=== PATIENT | male | born 1975 | race African-American/Black ===

== ENCOUNTER 2019-07-01 19:25 | Inpatient (IN) | payer MEDICAID ==
[~2019-07-01] VITALS: Ht 175.3 cm; Wt 59.3 kg
[~2019-07-01 19:25] MED LIST: DIAZ5TAB PO; HYDR-762 PO; IBUP-1542 PO; INSU100I12 SQ; INSU100I33 SC; METF-849 PO; MTF1000T PO
[2019-07-01] MEDS ORDERED: SOD CHLORIDE 0.9% 1,000 ML IV STA (19:58)
[2019-07-01] MEDS ORDERED: SOD CHLORIDE 0.9% 1,000 ML IV SCH (20:59)
[2019-07-01] MEDS ORDERED: DEXTROSE 10%/0.45% NACL 1,000 ML IV SCH (20:59)
[2019-07-01] MEDS ORDERED: NS + KCL 40 MEQ 1,000 ML IV SCH (20:59)
[2019-07-01] MEDS ORDERED: D10/0.45% NACL + KCL 40 MEQ 1,000 ML IV SCH (20:59)
[2019-07-01] MEDS ORDERED: DEXTROSE 50% 50 ML SYRINGE IV PRN ×2 (21:00)
[2019-07-01] MEDS ORDERED: INSULIN REGULAR, HUMAN 100 UNIT in SOD CHLORIDE 0.9% 100 ML IV SCH ×2 (21:00)
[2019-07-01] MEDS ORDERED: LACTATED RINGER'S 590 ML IV ONE (21:00)
[2019-07-01] MEDS: NS + KCL 30 MEQ 1,000 ML IV SCH (22:34)
[2019-07-01] MEDS ORDERED: ACETAMINOPHEN 650MG/20.3ML CUP PO PRN (23:00)
[2019-07-01] MEDS ORDERED: ALBUTEROL/IPRATROPIUM (NEB) 3 ML AMP NEB PRN (23:00)
[2019-07-01] MEDS ORDERED: ONDANSETRON 4 MG INJ IV PRN (23:00)
--- NOTE | 2019-07-01 23:00 | HP ---
Date/Time of Note Date/Time of Note DATE: 07/01/19 TIME: 23:00 Assessment/Plan VTE Prophylaxis Pharmacological prophylaxis: heparin Lines/Catheters IV Catheter Type (from Nrs): Saline Lock Assessment/Plan Assessment/Plan 43-year-old male with type 2 diabetes, on metformin and Lantus being admitted for DKA PLAN -Insulin with DKA protocol. I expect DKA to resolve quickly and transition to subcu -IV fluid -Correct electrolytes -ICU admission Result Diagram: 07/01/19201907/01/192019 Results 24hrs Laboratory Tests Test 07/01/19 19:37 07/01/19 20:20 07/01/19 20:58 07/01/19 20:59 Bedside Glucose 420 *H White Blood Count 7.1 Red Blood Count 5.86 Hemoglobin 17.3 Hematocrit 50.6 Mean Corpuscular 86.3 Volume Mean Corpuscular 29.5 Hemoglobin Mean Corpuscular 34.2 Hemoglobin Concen t Red Cell 12.8 Distribution Width Platelet Count 320 Mean Platelet 9.5 Volume Immature 1.000 H Granulocytes % Neutrophils % 72.3 Lymphocytes % 17.9 Monocytes % 7.4 Eosinophils % 0.4 Basophils % 1.0 Nucleated Red 0.0 Blood Cells % Immature 0.070 H Granulocytes # Neutrophils # 5.2 Lymphocytes # 1.3 Monocytes # 0.5 Eosinophils # 0.0 Basophils # 0.1 Nucleated Red 0.0 Blood Cells # Sodium Level 135 Potassium Level 5.0 Chloride Level 92 L Carbon Dioxide 16 L Level Anion Gap 27 H Blood Urea 15 Nitrogen Creatinine 1.10 Est Glomerular > 60 Filtrat Rate mL/min Glucose Level 436 *H Calcium Level 10.4 H Blood Gas Blood venous Specimen Source Arterial Blood 07/01/2019 9:06:5 Date Drawn 1 PM Arterial Blood VENOUS LINE Gas Puncture Site Markos Test N/A Venous Blood pH 7.256 L Venous Blood pCO2 34.7 L (Temp Corrected) Venous Blood pO2 35.8 H (Temp Corrected) Venous Blood HCO3 15.1 L Venous Blood 64.3 Oxygen Saturation Venous Blood Base -10.9 L Excess Venous Blood 17.3 Total Hemoglobin Venous Blood 63.6 Oxyhemoglobin Venous Blood 0.3 Methemoglobin Carboxyhemoglobin 0.8 Blood Gas 37.0 Temperature Blood Gas Actual 18 Respiration Rate Blood Gas ROOM AIR Modality FiO2 21.0 Blood Gas Notified Whom Blood Gas 07/01/2019 9:14:0 Notified Time 3 PM Urine Color STRAW Urine Clarity CLEAR Urine pH 5.0 Urine Specific 1.029 [place] Urine Ketones 2+ H Urine Nitrite NEGATIVE Urine Bilirubin NEGATIVE Urine NEGATIVE Urobilinogen Urine Leukocyte NEGATIVE Esterase Urine Hemoglobin NEGATIVE Urine Glucose 3+ H Urine Total NEGATIVE Protein Test 07/01/19 21:41 07/01/19 22:29 07/01/19 22:59 Bedside Glucose 359 H 303 H Blood Gas Blood venous Specimen Source Arterial Blood 07/01/2019 10:25: Date Drawn 20 PM Arterial Blood VENOUS LINE Gas Puncture Site Markos Test N/A Venous Blood pH 7.244 L Venous Blood pCO2 37.8 (Temp Corrected) Venous Blood pO2 29.9 (Temp Corrected) Venous Blood HCO3 16.0 L Venous Blood 55.4 Oxygen Saturation Venous Blood Base -10.5 L Excess Venous Blood 17.1 Total Hemoglobin Venous Blood 54.8 Oxyhemoglobin Venous Blood 0.3 Methemoglobin Carboxyhemoglobin 0.7 Blood Gas 37.0 Temperature Blood Gas Actual 25 Respiration Rate Blood Gas ROOM AIR Modality FiO2 21.0 Blood Gas Notified Whom Blood Gas 07/01/2019 10:31: Notified Time 06 PM HPI/ROS Admit Date/Time Admit Date/Time Hx of Present Illness Patient is a 43-year-old male with a history of type 2 diabetes (insulin-depende nt) who presents the ER complaining of generalized weakness, nausea/vomiting. Patient was found to be in DKA and was started on a DKA protocol. PMH/Family/Social Past Medical History Medical History: other (see hpi) Medications Current Medications Potassium Chloride/Sodium Chloride 1,000 ml @ 0 mls/hr Q0M IV ; Start 07/01/19 at 20:59 Potassium Chloride/Dextrose/ Sod Cl 1,000 ml @ 0 mls/hr Q0M IV ; Start 07/01/19 at 20:59 Potassium Chloride/Sodium Chloride 1,000 ml @ 0 mls/hr Q0M IV Last administered on 07/01/19at 22:34; Admin Dose 250 MLS/HR; Start 07/01/19 at 20:59 Potassium Chloride/Dextrose/ Sod Cl 1,000 ml @ 0 mls/hr Q0M IV ; Start 07/01/19 at 20:59 Sodium Chloride 1,000 ml @ 0 mls/hr Q0M IV ; Start 07/01/19 at 20:59 Dextrose/Sodium Chloride 1,000 ml @ 0 mls/hr Q0M IV ; Start 07/01/19 at 20:59 Insulin Human Regular 100 unit/ Sodium Chloride 101 ml @ 5.99 mls/hr ER DKA PROTOCOL IV Last administered on 07/01/19at 22:37; Admin Dose 5.99 MLS/HR; Start 07/01/19 at 21:00 Miscellaneous Information (* Miscellaneous Pharmacy Order) HYPOGLYCEMIA TREATMENT HYPOGLYCEM PROTOCOL PRN XX .HYPOGLYCEMIA PROTOCOL; Start 07/01/19 at 21:00 Dextrose (D50w Syringe) 50 ml Q15M PRN IV .DECREASED GLUCOSE; Start 07/01/19 at 21:00 Dextrose (D50w Syringe) 25 ml Q15M PRN IV .DECREASED GLUCOSE; Start 07/01/19 at 21:00 Ondansetron HCl (Zofran Inj) 4 mg Q6H PRN IV NAUSEA AND/OR VOMITING; Start 07/01/19 at 23:00; Status UNV Albuterol/ Ipratropium (Duoneb) 3 ml Q2H RESP THERAPY PRN NEB SHORTNESS OF BREATH; Start 07/01/19 at 23:00; Status UNV Acetaminophen (Tylenol Liquid) 650 mg Q6H PRN PO PAIN LEVEL 1-3 OR FEVER; Start 07/01/19 at 23:00; Status UNV Pantoprazole (Protonix Iv) 40 mg DAILY@06 IV ; Start 07/02/19 at 06:00; Status UNV Coded Allergies: No Known Allergy (Unverified , 07/01/19) Past Surgical History Past Surgical Hx: other (see hpi) Family History Significant Family History: no pertinent family hx, other Social History Alcohol Use: other Smoking Status: Unknown if ever smoked Drug Use: other Exam/Review of Systems Vital Signs Vitals Vital Signs Date Temp Pulse Resp B/P (MAP) Pulse Ox O2 O2 Flow FiO2 Time Delivery Rate 07/01/19 98.5 102 25 143/99 100 Room Air 21:30 (114) Exam Constitutional: other (no acute distress) Head: normocephalic Eyes: PERRL Neck: supple Respiratory: clear to auscultation Cardiovascular: nl pulses Gastrointestinal: soft Extremities: normal pulses HEIDI PAULINO MD Jul 01, 2019 23:00
[2019-07-02] VITALS (20 sets, daily range): BP systolic 110–135; BP diastolic 70–95; PULSE 83–100; RESP 11–18; Ht 175.3 cm; Wt 59.3 kg
--- NOTE | 2019-07-02 00:19 | ERD ---
ER Documentation Chief Complaint Chief Complaint vomiting/generalize body weakness, sent by pmd for hyperglycemia HPI 43-year-old male sent in from clinic for vomiting and generalized body weakness for the past 2 days. He states that he has just generally not been feeling well. He does have a history of type 2 diabetes for which she uses insulin and metformin. He is using his medications as directed. He has had increased str ess in his home situation recently. No chest pain or shortness of breath at this time. No recent fevers or chills. ROS All systems reviewed and are negative except as per history of present illness. Medications Home Meds Reported Medications Metformin* (Glucophage*) 1,000 Mg Tablet, 1000 MG PO WITH BREAKFAST DINNE, #30 TAB 07/01/19 Insulin Glargine,Hum.rec.anlog (Basaglar Kwikpen U-100) 100 Unit/1 Ml Insuln.pen, 35 UNIT SC QHS, EA 07/01/19 Discontinued Scripts Ibuprofen* (Motrin*) 600 Mg Tab, 600 MG PO Q6, #30 TAB Prov:ARGENIS CLAUDIO MD 07/12/15 Diazepam* (Valium*) 5 Mg Tablet, 5 MG PO QHS PRN for MUSCLE SPASMS, #5 TAB Prov:ARGENIS CLAUDIO MD 07/12/15 Hydrocodone Bit-Acetaminophen* ([place]*) 10-325 Mg Tablet, 1 TAB PO Q6 PRN for PAIN, #12 TAB Prov:ARGENIS CLAUDIO MD 07/12/15 Allergies Allergies: Coded Allergies: No Known Allergy (Unverified , 07/01/19) PMhx/Soc History of Surgery: No Anesthesia Reaction: No Hx Neurological Disorder: No Hx Respiratory Disorders: No Hx Cardiac Disorders: No Hx Psychiatric Problems: No Hx Miscellaneous Medical Probl: Yes (DM) Hx Alcohol Use: No Hx Substance Use: No Hx Tobacco Use: No Smoking Status: Unknown if ever smoked FmHx Family History: No diabetes Physical Exam Vitals Vital Signs Date Temp Pulse Resp B/P (MAP) Pulse Ox O2 O2 Flow FiO2 Time Delivery Rate 07/01/19 98.5 102 25 143/99 100 Room Air 21:30 (114) 07/01/19 98.7 90 18 121/93 98 Room Air 20:24 (102) 07/01/19 98.2 103 20 134/84 98 19:34 (101) Physical Exam Const: No acute distress Head: Atraumatic Eyes: Normal Conjunctiva, PERRLA, EOMI ENT: Dry mucous membranes. Normal External Ears, Nose and Mouth. Neck: Full range of motion. No meningismus. Resp: Clear to auscultation bilaterally Cardio: Tachycardic with regular rhythm, no murmurs Abd: Soft, non tender, non distended. Normal bowel sounds Skin: No petechiae or rashes Back: No midline or flank tenderness Ext: No cyanosis, or edema Neur: Awake and alert, normal speech, moving all extremities Psych: Normal Mood and Affect Result Diagram: 07/01/19201907/01/192229 Results 24 hrs Laboratory Tests Test 07/01/19 19:37 07/01/19 20:20 07/01/19 20:58 07/01/19 20:59 Bedside Glucose 420 mg/dL White Blood 7.1 10^3/ul Count Red Blood Count 5.86 10^6/ul Hemoglobin 17.3 g/dl Hematocrit 50.6 % Mean 86.3 fl Corpuscular Volume Mean 29.5 pg Corpuscular Hemoglobin Mean 34.2 g/dl Corpuscular Hemoglobin Conc ent Red Cell 12.8 % Distribution Width Platelet Count 320 10^3/UL Mean Platelet 9.5 fl Volume Immature 1.000 % Granulocytes % Neutrophils % 72.3 % Lymphocytes % 17.9 % Monocytes % 7.4 % Eosinophils % 0.4 % Basophils % 1.0 % Nucleated Red 0.0 /100WBC Blood Cells % Immature 0.070 10^3/ul Granulocytes # Neutrophils # 5.2 10^3/ul Lymphocytes # 1.3 10^3/ul Monocytes # 0.5 10^3/ul Eosinophils # 0.0 10^3/ul Basophils # 0.1 10^3/ul Nucleated Red 0.0 10^3/ul Blood Cells # Sodium Level 135 mmol/L Potassium Level 5.0 mmol/L Chloride Level 92 mmol/L Carbon Dioxide 16 mmol/L Level Anion Gap 27 Blood Urea 15 mg/dl Nitrogen Creatinine 1.10 mg/dl Est Glomerular > 60 mL/min Filtrat Rate mL/min Glucose Level 436 mg/dl Calcium Level 10.4 mg/dl Blood Gas Blood venous Specimen Source Arterial Blood 07/01/2019 9:06: Date Drawn 51 PM Arterial Blood VENOUS LINE Gas Puncture Site Markos Test N/A Venous Blood pH 7.256 Venous Blood 34.7 mmHG pCO2 (Temp Corrected ) Venous Blood 35.8 mmHG pO2 (Temp Corrected ) Venous Blood 15.1 mmol/L HCO3 Venous Blood 64.3 mmHG Oxygen Saturation Venous Blood -10.9 mmol/L Base Excess Venous Blood 17.3 g/dl Total Hemoglobin Venous Blood 63.6 % Oxyhemoglobin Venous Blood 0.3 % Methemoglobin Carboxyhemoglob 0.8 % in Blood Gas 37.0 C Temperature Blood Gas 18 Actual Respiration Rat e Blood Gas ROOM AIR Modality FiO2 21.0 % Blood Gas Notified Whom Blood Gas 07/01/2019 9:14: Notified Time 03 PM Urine Color STRAW Urine Clarity CLEAR Urine pH 5.0 Urine Specific 1.029 [place] Urine Ketones 2+ mg/dL Urine Nitrite NEGATIVE mg/dL Urine Bilirubin NEGATIVE mg/dL Urine NEGATIVE mg/dL Urobilinogen Urine Leukocyte NEGATIVE Ron/ul Esterase Urine NEGATIVE mg/dL Hemoglobin Urine Glucose 3+ mg/dL Urine Total NEGATIVE mg/dl Protein Test 07/01/19 21:41 07/01/19 22:29 07/01/19 22:30 07/01/19 22:59 Bedside Glucose 359 mg/dL 303 mg/dL Sodium Level 134 mmol/L Potassium Level 5.8 mmol/L Chloride Level 98 mmol/L Carbon Dioxide 15 mmol/L Level Anion Gap 21 Blood Urea 13 mg/dl Nitrogen Creatinine 1.02 mg/dl Est Glomerular > 60 mL/min Filtrat Rate mL/min Glucose Level 354 mg/dl Calcium Level 9.2 mg/dl Phosphorus 3.9 mg/dl Level Magnesium Level 1.8 mg/dl Blood Gas Blood venous Specimen Source Arterial Blood 07/01/2019 10:25 Date Drawn :20 PM Arterial Blood VENOUS LINE Gas Puncture Site Markos Test N/A Venous Blood pH 7.244 Venous Blood 37.8 mmHG pCO2 (Temp Corrected ) Venous Blood 29.9 mmHG pO2 (Temp Corrected ) Venous Blood 16.0 mmol/L HCO3 Venous Blood 55.4 mmHG Oxygen Saturation Venous Blood -10.5 mmol/L Base Excess Venous Blood 17.1 g/dl Total Hemoglobin Venous Blood 54.8 % Oxyhemoglobin Venous Blood 0.3 % Methemoglobin Carboxyhemoglob 0.7 % in Blood Gas 37.0 C Temperature Blood Gas 25 Actual Respiration Rat e Blood Gas ROOM AIR Modality FiO2 21.0 % Blood Gas Notified Whom Blood Gas 07/01/2019 10:31 Notified Time :06 PM Test 07/01/19 23:34 Bedside Glucose 290 mg/dL Current Medications Medications Dose Sig/[place] Start Time Status Last (Trade) Ordered Route PRN Stop Time Admin Dose Reason Admin Sodium 1,000 ml @ Q1H STAT 07/01/19 DC 07/01/19 Chloride 1,000 mls/hr IV 19:58 20:16 07/01/19 20:57 Potassium 1,000 ml @ Q0M IV 07/01/19 Chloride/Sodi 0 mls/hr 20:59 um Chloride Potassium 1,000 ml @ Q0M IV 07/01/19 Chloride/Dext 0 mls/hr 20:59 chel[place]/ Sod Cl Potassium 1,000 ml @ Q0M IV 07/01/19 07/01/19 Chloride/Sodi 0 mls/hr 20:59 22:34 um Chloride Potassium 1,000 ml @ Q0M IV 07/01/19 Chloride/Dext 0 mls/hr 20:59 [place]/ Sod Cl Sodium 1,000 ml @ Q0M IV 07/01/19 07/01/19 Chloride 0 mls/hr 20:59 23:41 1,000 ml @ Q0M IV 07/01/19 07/01/19 Dextrose/Sodi 0 mls/hr 20:59 23:50 um Chloride Insulin 101 ml @ ER DKA 07/01/19 07/01/19 Human 5.99 mls/hr PROTOCOL IV 21:00 22:37 Regular 100 unit/ Sodium Chloride Lactated 590 ml @ ONCE ONCE 07/01/19 DC 07/01/19 Ringer's 590 mls/hr IV 21:00 21:30 07/01/19 21:59 HYPOGLYCEM 07/01/19 Miscellaneous HYPOGLYCEMIA PROTOCOL PRN 21:00 TREATMENT XX Information .HYPOGLYCEMIA (* PROTOCOL Miscellaneous Pharmacy Order) Dextrose 50 ml Q15M PRN 07/01/19 (D50w IV 21:00 Syringe) .DECREASED GLUCOSE Dextrose 25 ml Q15M PRN 07/01/19 (D50w IV 21:00 Syringe) .DECREASED GLUCOSE Ondansetron 4 mg Q6H PRN 07/01/19 HCl (Zofran IV NAUSEA 23:00 Inj) AND/OR VOMITING Albuterol/ 3 ml Q2H RESP 07/01/19 Ipratropium THERAPY PRN 23:00 (Duoneb) NEB SHORTNESS OF BREATH 650 mg Q6H PRN 07/01/19 Acetaminophen PO PAIN 23:00 (Tylenol LEVEL 1-3 OR Liquid) FEVER 40 mg DAILY@06 07/02/19 Pantoprazole IV 06:00 (Protonix Iv) Procedures/MDM EMERGENT LABS AND DIAGNOSTIC STUDIES: Lab Results above were reviewed and interpreted by me. CBC: no anemia or evidence of infection BMP: Low CO2, consistent with acidosis. Increased anion gap. Normal renal function. Hyperglycemic. UA: 2+ ketones and + glucose. no evidence of infection Initial Nursing notes reviewed. Previous Medical Records requested via the Electronic Health Record. EMERGENCY DEPARTMENT COURSE / MEDICAL DECISION MAKING: Patient presents with nausea and vomiting and work-up consistent with DKA. He was started on IV fluids and DKA protocol with insulin infusion. I have a low suspicion for infection. Patient will require admission for further stabilization and treatment. Dr. Garcia accepted patient for admission to ICU. Critical Care Time: 35 minutes Treatments/Evaluations: Close monitoring and treatment of unstable vital signs, cardiorespiratory, and neurologic status, while maintaining tight balance of fluid, respiratory, and cardiac interventions. This time includes discussing the case with the patient and the patients family. This time does not include all procedures stated elsewhere in this record. This time also includes reviewing old records, labs and radiological studies. This time includes examining and re- examining the patient. Additionally, this time also includes arranging care with admitting and consulting physicians. Departure Diagnosis: Primary Impression: Diabetic ketoacidosis Diabetes mellitus type: type 2 Diabetes mellitus complication detail: without coma Qualified Codes: E11.10 - Type 2 diabetes mellitus with ketoacidosis without coma Condition: Stable EKBRUCE POLLACK MD Jul 02, 2019 00:19
[2019-07-02] MEDS: D10/0.45% NACL + KCL 30 MEQ 1,000 ML IV SCH ×2 (01:52→09:09)
[2019-07-02] MEDS: NS + KCL 30 MEQ 1,000 ML IV SCH ×2 (02:04→11:00)
[2019-07-02] MEDS ORDERED: GLUCOSE GEL 15 GRAM TUBE PO PRN ×2 (07:30)
[2019-07-02] MEDS ORDERED: DEXTROSE 50% 50 ML SYRINGE IV PRN ×2 (07:30)
[2019-07-02] MEDS ORDERED: GLUCAGON 1 MG INJ IM PRN (07:30)
[2019-07-02] MEDS ORDERED: GLUCOSE GEL 15 GRAM TUBE BUCCAL PRN (07:30)
[2019-07-02] MEDS: INSULIN ASPART [NOVOLOG] 3 ML PEN SC SCH ×7 (07:35→20:36)
[2019-07-02] MEDS ORDERED: INSULIN GLARGINE [LANTus] (100 UNITS/ML) SYG SC SCH (08:00)
[2019-07-02] MEDS: PANTOPRAZOLE 40 MG INJ IV SCH (08:16)
[2019-07-02] MEDS: INSULIN GLARGINE [LANTus] (100 UNITS/ML) SYG SC SCH (09:10)
--- NOTE | 2019-07-02 09:59 | PN ---
Date/Time of Note Date/Time of Note DATE: 07/02/19 TIME: 09:54 Assessment/Plan VTE Prophylaxis SCD applied (from Nsg): No SCD contraindicated: other Pharmacological prophylaxis: NA/contraindicated Pharm contraindication: low risk/ambulating Lines/Catheters IV Catheter Type (from Nrsg): [place] Assessment/Plan Hospital Course Assessment and plan #DKA. Patient with reported type 2 diabetes. Continue IV fluids. Improving at present. Transition off of insulin drip. Will get family life educator Disposition and plan: Patient did report that he recently lost his job. Will get family life educator to assist with home care planning. Monitor glucose trend. Discussed POC with Dr. Del Rio Result Diagram: 07/01/19201907/02/19 0430 Results 24hrs Laboratory Tests Test 07/01/19 19:37 07/01/19 20:20 07/01/19 20:58 07/01/19 20:59 Bedside Glucose 420 *H White Blood 7.1 Count Red Blood Count 5.86 Hemoglobin 17.3 Hematocrit 50.6 Mean 86.3 Corpuscular Volume Mean 29.5 Corpuscular Hemoglobin Mean 34.2 Corpuscular Hemoglobin Conc ent Red Cell 12.8 Distribution Width Platelet Count 320 Mean Platelet 9.5 Volume Immature 1.000 H Granulocytes % Neutrophils % 72.3 Lymphocytes % 17.9 Monocytes % 7.4 Eosinophils % 0.4 Basophils % 1.0 Nucleated Red 0.0 Blood Cells % Immature 0.070 H Granulocytes # Neutrophils # 5.2 Lymphocytes # 1.3 Monocytes # 0.5 Eosinophils # 0.0 Basophils # 0.1 Nucleated Red 0.0 Blood Cells # Sodium Level 135 Potassium Level 5.0 Chloride Level 92 L Carbon Dioxide 16 L Level Anion Gap 27 H Blood Urea 15 Nitrogen Creatinine 1.10 Est Glomerular > 60 Filtrat Rate mL/min Glucose Level 436 *H Calcium Level 10.4 H Blood Gas Blood venous Specimen Source Arterial Blood 07/01/2019 9:06: Date Drawn 51 PM Arterial Blood VENOUS LINE Gas Puncture Site Markos Test N/A Venous Blood pH 7.256 L Venous Blood 34.7 L pCO2 (Temp Corrected ) Venous Blood 35.8 H pO2 (Temp Corrected ) Venous Blood 15.1 L HCO3 Venous Blood 64.3 Oxygen Saturation Venous Blood -10.9 L Base Excess Venous Blood 17.3 Total Hemoglobin Venous Blood 63.6 Oxyhemoglobin Venous Blood 0.3 Methemoglobin Carboxyhemoglob 0.8 in Blood Gas 37.0 Temperature Blood Gas 18 Actual Respiration Rat e Blood Gas ROOM AIR Modality FiO2 21.0 Blood Gas Notified Whom Blood Gas 07/01/2019 9:14: Notified Time 03 PM Urine Color STRAW Urine Clarity CLEAR Urine pH 5.0 Urine Specific 1.029 [place] Urine Ketones 2+ H Urine Nitrite NEGATIVE Urine Bilirubin NEGATIVE Urine NEGATIVE Urobilinogen Urine Leukocyte NEGATIVE Esterase Urine NEGATIVE Hemoglobin Urine Glucose 3+ H Urine Total NEGATIVE Protein Test 07/01/19 21:41 07/01/19 22:29 07/01/19 22:30 07/01/19 22:59 Bedside Glucose 359 H 303 H Sodium Level 134 L Potassium Level 5.8 H Chloride Level 98 Carbon Dioxide 15 L Level Anion Gap 21 H Blood Urea 13 Nitrogen Creatinine 1.02 Est Glomerular > 60 Filtrat Rate mL/min Glucose Level 354 H Calcium Level 9.2 Phosphorus 3.9 Level Magnesium Level 1.8 Blood Gas Blood venous Specimen Source Arterial Blood 07/01/2019 10:2 Date Drawn 5:20 PM Arterial Blood VENOUS LINE Gas Puncture Site Markos Test N/A Venous Blood pH 7.244 L Venous Blood 37.8 pCO2 (Temp Corrected ) Venous Blood 29.9 pO2 (Temp Corrected ) Venous Blood 16.0 L HCO3 Venous Blood 55.4 Oxygen Saturation Venous Blood -10.5 L Base Excess Venous Blood 17.1 Total Hemoglobin Venous Blood 54.8 Oxyhemoglobin Venous Blood 0.3 Methemoglobin Carboxyhemoglob 0.7 in Blood Gas 37.0 Temperature Blood Gas 25 Actual Respiration Rat e Blood Gas ROOM AIR Modality FiO2 21.0 Blood Gas Notified Whom Blood Gas 07/01/2019 10:3 Notified Time 1:06 PM Test 07/01/19 23:34 07/02/19 00:36 07/02/19 00:37 07/02/19 00:59 Bedside Glucose 290 H 279 H Sodium Level 138 Potassium Level 4.2 Chloride Level 103 Carbon Dioxide 18 L Level Anion Gap 17 H Blood Urea 13 Nitrogen Creatinine 0.89 Est Glomerular > 60 Filtrat Rate mL/min Glucose Level 296 H Calcium Level 9.1 Phosphorus 3.2 Level Magnesium Level 1.7 Blood Gas Blood venous Specimen Source Arterial Blood 07/02/2019 12:35 Date Drawn :25 AM Arterial Blood VENOUS LINE Gas Puncture Site Markos Test N/A Venous Blood pH 7.279 L Venous Blood 39.8 pCO2 (Temp Corrected ) Venous Blood 25.7 pO2 (Temp Corrected ) Venous Blood 18.2 L HCO3 Venous Blood 46.9 L Oxygen Saturation Venous Blood -8.0 L Base Excess Venous Blood 16.2 Total Hemoglobin Venous Blood 46.6 Oxyhemoglobin Venous Blood 0.2 Methemoglobin Carboxyhemoglob 0.5 in Blood Gas 37.0 Temperature Blood Gas 26 Actual Respiration Rat e Blood Gas ROOM AIR Modality FiO2 21.0 Blood Gas Notified Whom Blood Gas 07/02/2019 12:41 Notified Time :59 AM Test 07/02/19 01:32 07/02/19 02:32 07/02/19 03:28 07/02/19 04:30 Bedside Glucose 249 H 265 H 240 H Sodium Level 136 Potassium Level 4.7 Chloride Level 107 Carbon Dioxide 22 Level Anion Gap 7 # Blood Urea 13 Nitrogen Creatinine 0.70 Est Glomerular > 60 Filtrat Rate mL/min Glucose Level 232 H Calcium Level 8.9 Phosphorus 3.0 Level Magnesium Level 1.7 Test 07/02/19 04:41 07/02/19 04:59 07/02/19 05:42 07/02/19 06:27 Bedside Glucose 238 H 192 204 Blood Gas Blood venous Specimen Source Arterial Blood 07/02/2019 4:40:0 Date Drawn 6 AM Arterial Blood VENOUS LINE Gas Puncture Site Markos Test N/A Venous Blood pH 7.382 Venous Blood 40.1 pCO2 (Temp Corrected ) Venous Blood 70.1 H pO2 (Temp Corrected ) Venous Blood 23.3 HCO3 Venous Blood 94.0 H Oxygen Saturation Venous Blood -1.6 Base Excess Venous Blood 15.5 Total Hemoglobin Venous Blood 93.4 Oxyhemoglobin Venous Blood 0.3 Methemoglobin Carboxyhemoglob 0.3 in Blood Gas 37.0 Temperature Blood Gas 28 Actual Respiration Rat e Blood Gas ROOM AIR Modality FiO2 21.0 Blood Gas Notified Whom Blood Gas 07/02/2019 4:49:3 Notified Time 7 AM Test 07/02/19 08:00 07/02/19 09:08 Bedside Glucose 85 113 Subjective 24 Hr Interval Summary Free Text/Dictation patient alert and oriented. 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, nl mental status, nl speech Skin: nl turgor Results Results 24hrs Laboratory Tests Test 07/01/19 19:37 07/01/19 20:20 07/01/19 20:58 07/01/19 20:59 Bedside Glucose 420 *H White Blood 7.1 Count Red Blood Count 5.86 Hemoglobin 17.3 Hematocrit 50.6 Mean 86.3 Corpuscular Volume Mean 29.5 Corpuscular Hemoglobin Mean 34.2 Corpuscular Hemoglobin Conc ent Red Cell 12.8 Distribution Width Platelet Count 320 Mean Platelet 9.5 Volume Immature 1.000 H Granulocytes % Neutrophils % 72.3 Lymphocytes % 17.9 Monocytes % 7.4 Eosinophils % 0.4 Basophils % 1.0 Nucleated Red 0.0 Blood Cells % Immature 0.070 H Granulocytes # Neutrophils # 5.2 Lymphocytes # 1.3 Monocytes # 0.5 Eosinophils # 0.0 Basophils # 0.1 Nucleated Red 0.0 Blood Cells # Sodium Level 135 Potassium Level 5.0 Chloride Level 92 L Carbon Dioxide 16 L Level Anion Gap 27 H Blood Urea 15 Nitrogen Creatinine 1.10 Est Glomerular > 60 Filtrat Rate mL/min Glucose Level 436 *H Calcium Level 10.4 H Blood Gas Blood venous Specimen Source Arterial Blood 07/01/2019 9:06: Date Drawn 51 PM Arterial Blood VENOUS LINE Gas Puncture Site Markos Test N/A Venous Blood pH 7.256 L Venous Blood 34.7 L pCO2 (Temp Corrected ) Venous Blood 35.8 H pO2 (Temp Corrected ) Venous Blood 15.1 L HCO3 Venous Blood 64.3 Oxygen Saturation Venous Blood -10.9 L Base Excess Venous Blood 17.3 Total Hemoglobin Venous Blood 63.6 Oxyhemoglobin Venous Blood 0.3 Methemoglobin Carboxyhemoglob 0.8 in Blood Gas 37.0 Temperature Blood Gas 18 Actual Respiration Rat e Blood Gas ROOM AIR Modality FiO2 21.0 Blood Gas Notified Whom Blood Gas 07/01/2019 9:14: Notified Time 03 PM Urine Color STRAW Urine Clarity CLEAR Urine pH 5.0 Urine Specific 1.029 [place] Urine Ketones 2+ H Urine Nitrite NEGATIVE Urine Bilirubin NEGATIVE Urine NEGATIVE Urobilinogen Urine Leukocyte NEGATIVE Esterase Urine NEGATIVE Hemoglobin Urine Glucose 3+ H Urine Total NEGATIVE Protein Test 07/01/19 21:41 07/01/19 22:29 07/01/19 22:30 07/01/19 22:59 Bedside Glucose 359 H 303 H Sodium Level 134 L Potassium Level 5.8 H Chloride Level 98 Carbon Dioxide 15 L Level Anion Gap 21 H Blood Urea 13 Nitrogen Creatinine 1.02 Est Glomerular > 60 Filtrat Rate mL/min Glucose Level 354 H Calcium Level 9.2 Phosphorus 3.9 Level Magnesium Level 1.8 Blood Gas Blood venous Specimen Source Arterial Blood 07/01/2019 10:2 Date Drawn 5:20 PM Arterial Blood VENOUS LINE Gas Puncture Site Markos Test N/A Venous Blood pH 7.244 L Venous Blood 37.8 pCO2 (Temp Corrected ) Venous Blood 29.9 pO2 (Temp Corrected ) Venous Blood 16.0 L HCO3 Venous Blood 55.4 Oxygen Saturation Venous Blood -10.5 L Base Excess Venous Blood 17.1 Total Hemoglobin Venous Blood 54.8 Oxyhemoglobin Venous Blood 0.3 Methemoglobin Carboxyhemoglob 0.7 in Blood Gas 37.0 Temperature Blood Gas 25 Actual Respiration Rat e Blood Gas ROOM AIR Modality FiO2 21.0 Blood Gas Notified Whom Blood Gas 07/01/2019 10:3 Notified Time 1:06 PM Test 07/01/19 23:34 07/02/19 00:36 07/02/19 00:37 07/02/19 00:59 Bedside Glucose 290 H 279 H Sodium Level 138 Potassium Level 4.2 Chloride Level 103 Carbon Dioxide 18 L Level Anion Gap 17 H Blood Urea 13 Nitrogen Creatinine 0.89 Est Glomerular > 60 Filtrat Rate mL/min Glucose Level 296 H Calcium Level 9.1 Phosphorus 3.2 Level Magnesium Level 1.7 Blood Gas Blood venous Specimen Source Arterial Blood 07/02/2019 12:35 Date Drawn :25 AM Arterial Blood VENOUS LINE Gas Puncture Site Markos Test N/A Venous Blood pH 7.279 L Venous Blood 39.8 pCO2 (Temp Corrected ) Venous Blood 25.7 pO2 (Temp Corrected ) Venous Blood 18.2 L HCO3 Venous Blood 46.9 L Oxygen Saturation Venous Blood -8.0 L Base Excess Venous Blood 16.2 Total Hemoglobin Venous Blood 46.6 Oxyhemoglobin Venous Blood 0.2 Methemoglobin Carboxyhemoglob 0.5 in Blood Gas 37.0 Temperature Blood Gas 26 Actual Respiration Rat e Blood Gas ROOM AIR Modality FiO2 21.0 Blood Gas Notified Whom Blood Gas 07/02/2019 12:41 Notified Time :59 AM Test 07/02/19 01:32 07/02/19 02:32 07/02/19 03:28 07/02/19 04:30 Bedside Glucose 249 H 265 H 240 H Sodium Level 136 Potassium Level 4.7 Chloride Level 107 Carbon Dioxide 22 Level Anion Gap 7 # Blood Urea 13 Nitrogen Creatinine 0.70 Est Glomerular > 60 Filtrat Rate mL/min Glucose Level 232 H Calcium Level 8.9 Phosphorus 3.0 Level Magnesium Level 1.7 Test 07/02/19 04:41 07/02/19 04:59 07/02/19 05:42 07/02/19 06:27 Bedside Glucose 238 H 192 204 Blood Gas Blood venous Specimen Source Arterial Blood 07/02/2019 4:40:0 Date Drawn 6 AM Arterial Blood VENOUS LINE Gas Puncture Site Markos Test N/A Venous Blood pH 7.382 Venous Blood 40.1 pCO2 (Temp Corrected ) Venous Blood 70.1 H pO2 (Temp Corrected ) Venous Blood 23.3 HCO3 Venous Blood 94.0 H Oxygen Saturation Venous Blood -1.6 Base Excess Venous Blood 15.5 Total Hemoglobin Venous Blood 93.4 Oxyhemoglobin Venous Blood 0.3 Methemoglobin Carboxyhemoglob 0.3 in Blood Gas 37.0 Temperature Blood Gas 28 Actual Respiration Rat e Blood Gas ROOM AIR Modality FiO2 21.0 Blood Gas Notified Whom Blood Gas 07/02/2019 4:49:3 Notified Time 7 AM Test 07/02/19 08:00 07/02/19 09:08 Bedside Glucose 85 113 Medications Medication Current Medications Potassium Chloride/Sodium Chloride 1,000 ml @ 0 mls/hr Q0M IV ; Start 07/01/19 at 20:59 Potassium Chloride/Dextrose/ Sod Cl 1,000 ml @ 0 mls/hr Q0M IV ; Start 07/01/19 at 20:59 Potassium Chloride/Sodium Chloride 1,000 ml @ 0 mls/hr Q0M IV Last administered on 07/02/19at 02:04; Admin Dose 100 MLS/HR; Start 07/01/19 at 20:59 Potassium Chloride/Dextrose/ Sod Cl 1,000 ml @ 0 mls/hr Q0M IV Last administered on 07/02/19at 09:09; Admin Dose 250 MLS/HR; Start 07/01/19 at 20:59 Sodium Chloride 1,000 ml @ 0 mls/hr Q0M IV Last administered on 07/01/19at 23:41; Admin Dose 100 MLS/HR; Start 07/01/19 at 20:59 Dextrose/Sodium Chloride 1,000 ml @ 0 mls/hr Q0M IV Last administered on 07/01/19at 23:50; Admin Dose 150 MLS/HR; Start 07/01/19 at 20:59 Insulin Human Regular 100 unit/ Sodium Chloride 101 ml @ 5.99 mls/hr ER DKA PROTOCOL IV Last administered on 07/01/19at 22:37; Admin Dose 5.99 MLS/HR; Start 07/01/19 at 21:00 Miscellaneous Information (* Miscellaneous Pharmacy Order) HYPOGLYCEMIA TREATMENT HYPOGLYCEM PROTOCOL PRN XX .HYPOGLYCEMIA PROTOCOL; Start 07/01/19 at 21:00 Dextrose (D50w Syringe) 50 ml Q15M PRN IV .DECREASED GLUCOSE; Start 07/01/19 at 21:00 Dextrose (D50w Syringe) 25 ml Q15M PRN IV .DECREASED GLUCOSE; Start 07/01/19 at 21:00 Ondansetron HCl (Zofran Inj) 4 mg Q6H PRN IV NAUSEA AND/OR VOMITING; Start 07/01/19 at 23:00 Albuterol/ Ipratropium (Duoneb) 3 ml Q2H RESP THERAPY PRN NEB SHORTNESS OF BREATH; Start 07/01/19 at 23:00 Acetaminophen (Tylenol Liquid) 650 mg Q6H PRN PO PAIN LEVEL 1-3 OR FEVER; Start 07/01/19 at 23:00 Pantoprazole (Protonix Iv) 40 mg DAILY@06 IV Last administered on 07/02/19at 08:16; Admin Dose 40 MG; Start 07/02/19 at 06:00 Diagnostic Test (Pha) (Accu-Chek) 1 ea 02 XX ; Start 07/03/19 at 02:00 Insulin Glargine (Lantus) 12 units DAILY@0800 SC Last administered on 07/02/19at 09:10; Admin Dose 12 UNITS; Start 07/02/19 at 09:00 Insulin Aspart (Novolog Insulin Pen) 4 unit WITH MEALS SC ; Start 07/02/19 at 07:35 Insulin Aspart (Novolog Insulin Pen) NOVOLOG *MODERATE* ALGORITHM WITH MEALS BEDTIME SC ; Start 07/02/19 at 07:35 Miscellaneous Information 1 ea NOTE XX ; Start 07/02/19 at 07:30 Glucose (Glutose) 15 gm Q15M PRN PO DECREASED GLUCOSE; Start 07/02/19 at 07:30 Glucose (Glutose) 22.5 gm Q15M PRN PO DECREASED GLUCOSE; Start 07/02/19 at 07:30 Dextrose (D50w Syringe) 25 ml Q15M PRN IV DECREASED GLUCOSE; Start 07/02/19 at 07:30 Dextrose (D50w Syringe) 50 ml Q15M PRN IV DECREASED GLUCOSE; Start 07/02/19 at 07:30 Glucagon (Glucagen) 1 mg Q15M PRN IM DECREASED GLUCOSE; Start 07/02/19 at 07:30 Glucose (Glutose) 15 gm Q15M PRN BUCCAL DECREASED GLUCOSE; Start 07/02/19 at 07:30 LOTUS CADET NP Jul 02, 2019 09:59
[2019-07-03] MEDS: ACCU-CHEK XX SCH ×4 (02:13→20:33)
[2019-07-03 02:30] VITALS: BP 118/77; PULSE 90; RESP 18
[2019-07-03] MEDS: PANTOPRAZOLE 40 MG INJ IV SCH (06:01)
[2019-07-03 07:21] VITALS: BP 125/83; PULSE 73; RESP 16
[2019-07-03] MEDS: INSULIN ASPART [NOVOLOG] 3 ML PEN SC SCH ×7 (08:17→20:29)
[2019-07-03] MEDS: INSULIN GLARGINE [LANTus] (100 UNITS/ML) SYG SC SCH (08:18)
[2019-07-03] MEDS ORDERED: INSULIN GLARGINE [LANTus] (100 UNITS/ML) SYG SC ONE (10:00)
[2019-07-03] MEDS ORDERED: metFORMIN 500 MG TAB PO ONE (10:30)
--- NOTE | 2019-07-03 12:11 | PN ---
Date/Time of Note Date/Time of Note DATE: 07/03/19 TIME: 12:10 Assessment/Plan VTE Prophylaxis Risk score (from Ns)>0 risk: 1 SCD applied (from Ns): No SCD contraindicated: low risk/ambulating Pharmacological prophylaxis: NA/contraindicated Pharm contraindication: low risk/ambulating Lines/Catheters IV [facility]ter [facility]from [facility] Peripheral IV Urinary Cath still in place: No Assessment/Plan Hospital Course Assessment and plan #DKA. Patient with reported type 2 diabetes. Transitioned off of insulin drip Continue Adjust subcutaneous insulin regimen Start on metformin family living educator to follow Disposition and plan: Waiting for improvement of glucose trend. Insulin regimen adjusted. 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 Discussed POC with Dr. Del Rio Result Diagram: 07/03/19 0953 07/03/19 0953 Results 24hrs Laboratory Tests Test 07/02/19 12:56 07/02/19 13:31 07/02/19 15:49 07/02/19 17:38 Bedside Glucose 263 H 216 Sodium Level 138 133 L Potassium Level 4.1 4.2 Chloride Level 107 104 Carbon Dioxide Level 23 22 Anion Gap 8 7 Blood Urea Nitrogen 13 13 Creatinine 0.70 0.73 Est Glomerular > 60 > 60 Filtrat Rate mL/min Glucose Level 231 H 265 H Calcium Level 8.8 8.8 Phosphorus Level 2.0 L 2.2 L Magnesium Level 1.7 1.6 L Test 07/02/19 17:58 07/02/19 20:31 07/02/19 22:06 07/03/19 02:10 Bedside Glucose 238 H 383 H 335 H Sodium Level 133 L Potassium Level 4.2 Chloride Level 102 Carbon Dioxide Level 23 Anion Gap 8 Blood Urea Nitrogen 15 Creatinine 0.78 Est Glomerular > 60 Filtrat Rate mL/min Glucose Level 363 H Calcium Level 9.1 Phosphorus Level 2.1 L Magnesium Level 1.6 L Test 07/03/19 08:13 07/03/19 09:53 07/03/19 11:56 Bedside Glucose 295 H White Blood Count 6.0 Red Blood Count 5.03 Hemoglobin 15.0 Hematocrit 42.9 Mean Corpuscular 85.3 Volume Mean Corpuscular 29.8 Hemoglobin Mean Corpuscular 35.0 Hemoglobin Concent Red Cell Distribution 12.7 Width Platelet Count 284 Mean Platelet Volume 9.2 Immature Granulocytes 0.500 H % Neutrophils % 64.4 Lymphocytes % 23.7 Monocytes % 9.4 Eosinophils % 1.2 Basophils % 0.8 Nucleated Red Blood 0.0 Cells % Immature Granulocytes 0.030 # Neutrophils # 3.8 Lymphocytes # 1.4 Monocytes # 0.6 Eosinophils # 0.1 Basophils # 0.1 Nucleated Red Blood 0.0 Cells # Sodium Level 136 Potassium Level 4.1 Chloride Level 104 Carbon Dioxide Level 21 Anion Gap 11 Blood Urea Nitrogen 14 Creatinine 0.78 Est Glomerular > 60 Filtrat Rate mL/min Glucose Level 344 H Calcium Level 9.4 Lab Scanned Report REFERENCE LAB Subjective 24 Hr Interval Summary Free Text/Dictation no s/s of distress. comfortable at present Exam/Review of Systems Exam Vitals Vital Signs Date Temp Pulse Resp B/P (MAP) Pulse Ox O2 O2 Flow FiO2 Time Delivery Rate 07/03/19 98.0 73 16 125/83 100 Room Air 07:21 (97) Intake and Output 07/02/19 07/02/19 07/03/19 1515:00 23:00 07:00 IntakeIntake Total 1819.86 ml 410 ml 1000 ml OutputOutput Total 400 ml 425 ml BalanceBalance 1419.86 ml -15 ml 1000 ml Exam Constitutional: alert, oriented Psych: nl mood/affect Eyes: nl conjunctiva Neck: supple, non-tender Respiratory: clear to auscultation Cardiovascular: regular rate and rhythm Gastrointestinal: soft, non-tender Musculoskeletal: nl extremities to inspection 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, nl mental status, nl speech Skin: nl turgor Results Results 24hrs Laboratory Tests Test 07/02/19 12:56 07/02/19 13:31 07/02/19 15:49 07/02/19 17:38 Bedside Glucose 263 H 216 Sodium Level 138 133 L Potassium Level 4.1 4.2 Chloride Level 107 104 Carbon Dioxide Level 23 22 Anion Gap 8 7 Blood Urea Nitrogen 13 13 Creatinine 0.70 0.73 Est Glomerular > 60 > 60 Filtrat Rate mL/min Glucose Level 231 H 265 H Calcium Level 8.8 8.8 Phosphorus Level 2.0 L 2.2 L Magnesium Level 1.7 1.6 L Test 07/02/19 17:58 07/02/19 20:31 07/02/19 22:06 07/03/19 02:10 Bedside Glucose 238 H 383 H 335 H Sodium Level 133 L Potassium Level 4.2 Chloride Level 102 Carbon Dioxide Level 23 Anion Gap 8 Blood Urea Nitrogen 15 Creatinine 0.78 Est Glomerular > 60 Filtrat Rate mL/min Glucose Level 363 H Calcium Level 9.1 Phosphorus Level 2.1 L Magnesium Level 1.6 L Test 07/03/19 08:13 07/03/19 09:53 07/03/19 11:56 Bedside Glucose 295 H White Blood Count 6.0 Red Blood Count 5.03 Hemoglobin 15.0 Hematocrit 42.9 Mean Corpuscular 85.3 Volume Mean Corpuscular 29.8 Hemoglobin Mean Corpuscular 35.0 Hemoglobin Concent Red Cell Distribution 12.7 Width Platelet Count 284 Mean Platelet Volume 9.2 Immature Granulocytes 0.500 H % Neutrophils % 64.4 Lymphocytes % 23.7 Monocytes % 9.4 Eosinophils % 1.2 Basophils % 0.8 Nucleated Red Blood 0.0 Cells % Immature Granulocytes 0.030 # Neutrophils # 3.8 Lymphocytes # 1.4 Monocytes # 0.6 Eosinophils # 0.1 Basophils # 0.1 Nucleated Red Blood 0.0 Cells # Sodium Level 136 Potassium Level 4.1 Chloride Level 104 Carbon Dioxide Level 21 Anion Gap 11 Blood Urea Nitrogen 14 Creatinine 0.78 Est Glomerular > 60 Filtrat Rate mL/min Glucose Level 344 H Calcium Level 9.4 Lab Scanned Report REFERENCE LAB Medications Medication Current Medications Potassium Chloride/Sodium Chloride 1,000 ml @ 0 mls/hr Q0M IV ; Start 07/01/19 at 20:59 Potassium Chloride/Dextrose/ Sod Cl 1,000 ml @ 0 mls/hr Q0M IV ; Start 07/01/19 at 20:59 Potassium Chloride/Sodium Chloride 1,000 ml @ 0 mls/hr Q0M IV Last administered on 07/02/19at 11:00; Admin Dose 50 MLS/HR; Start 07/01/19 at 20:59 Potassium Chloride/Dextrose/ Sod Cl 1,000 ml @ 0 mls/hr Q0M IV Last administe red on 07/02/19at 09:09; Admin Dose 250 MLS/HR; Start 07/01/19 at 20:59 Sodium Chloride 1,000 ml @ 0 mls/hr Q0M IV Last administered on 07/01/19at 23:41; Admin Dose 100 MLS/HR; Start 07/01/19 at 20:59 Dextrose/Sodium Chloride 1,000 ml @ 0 mls/hr Q0M IV Last administered on 07/01/19at 23:50; Admin Dose 150 MLS/HR; Start 07/01/19 at 20:59 Insulin Human Regular 100 unit/ Sodium Chloride 101 ml @ 5.99 mls/hr ER DKA PROTOCOL IV Last administered on 07/01/19at 22:37; Admin Dose 5.99 MLS/HR; Start 07/01/19 at 21:00 Miscellaneous Information (* Miscellaneous Pharmacy Order) HYPOGLYCEMIA TREATMENT HYPOGLYCEM PROTOCOL PRN XX .HYPOGLYCEMIA PROTOCOL; Start 07/01/19 at 21:00 Dextrose (D50w Syringe) 50 ml Q15M PRN IV .DECREASED GLUCOSE; Start 07/01/19 at 21:00 Dextrose (D50w Syringe) 25 ml Q15M PRN IV .DECREASED GLUCOSE; Start 07/01/19 at 21:00 Ondansetron HCl (Zofran Inj) 4 mg Q6H PRN IV NAUSEA AND/OR VOMITING; Start 07/01/19 at 23:00 Albuterol/ Ipratropium (Duoneb) 3 ml Q2H RESP THERAPY PRN NEB SHORTNESS OF BREATH; Start 07/01/19 at 23:00 Acetaminophen (Tylenol Liquid) 650 mg Q6H PRN PO PAIN LEVEL 1-3 OR FEVER; Start 07/01/19 at 23:00 Pantoprazole (Protonix Iv) 40 mg DAILY@06 IV Last administered on 07/03/19at 06:01; Admin Dose 40 MG; Start 07/02/19 at 06:00 Diagnostic Test (Pha) (Accu-Chek) 1 ea 02 XX Last administered on 07/03/19at 02:13; Admin Dose 1 EA; Start 07/03/19 at 02:00 Insulin Aspart (Novolog Insulin Pen) NOVOLOG *MODERATE* ALGORITHM WITH MEALS BEDTIME SC Last administered on 07/03/19at 12:07; Admin Dose 4 UNIT; Start 07/02/19 at 07:35 Miscellaneous Information 1 ea NOTE XX ; Start 07/02/19 at 07:30 Glucose (Glutose) 15 gm Q15M PRN PO DECREASED GLUCOSE; Start 07/02/19 at 07:30 Glucose (Glutose) 22.5 gm Q15M PRN PO DECREASED GLUCOSE; Start 07/02/19 at 07:30 Dextrose (D50w Syringe) 25 ml Q15M PRN IV DECREASED GLUCOSE; Start 07/02/19 at 07:30 Dextrose (D50w Syringe) 50 ml Q15M PRN IV DECREASED GLUCOSE; Start 07/02/19 at 07:30 Glucagon (Glucagen) 1 mg Q15M PRN IM DECREASED GLUCOSE; Start 07/02/19 at 07:30 Glucose (Glutose) 15 gm Q15M PRN BUCCAL DECREASED GLUCOSE; Start 07/02/19 at 07:30 Insulin Aspart (Novolog Insulin Pen) 7 unit WITH MEALS SC Last administered on 07/03/19at 12:08; Admin Dose 7 UNIT; Start 07/03/19 at 11:30 Insulin Glargine (Lantus) 20 units DAILY@0800 SC ; Start 07/04/19 at 08:00 Metformin HCl (Glucophage) 500 mg BID WITH MEALS PO ; Start 07/03/19 at 18:05 Diagnostic Test (Pha) (Accu-Chek) 1 ea AC MEALS AND BEDTIME XX ; Start 07/03/19 at 11:30 LOTUS CADET NP Jul 03, 2019 12:11
[2019-07-03 14:27] VITALS: BP 126/76; PULSE 88; RESP 18
[2019-07-03] MEDS: metFORMIN 500 MG TAB PO SCH (17:23)
[2019-07-03 20:31] VITALS: BP 130/86; PULSE 90; RESP 20
[2019-07-04] MEDS: ACCU-CHEK XX SCH ×5 (02:00→20:34)
[2019-07-04 02:34] VITALS: BP 129/81; PULSE 98; RESP 20
[2019-07-04] MEDS: FAMOTIDINE 20 MG INJ IV SCH (06:07)
[2019-07-04 07:15] VITALS: BP 121/86; PULSE 76; RESP 16
[2019-07-04] MEDS: metFORMIN 500 MG TAB PO SCH ×2 (08:33→17:09)
[2019-07-04] MEDS: INSULIN ASPART [NOVOLOG] 3 ML PEN SC SCH ×7 (08:35→20:34)
[2019-07-04] MEDS: INSULIN GLARGINE [LANTus] (100 UNITS/ML) SYG SC SCH (09:11)
--- NOTE | 2019-07-04 13:21 | PDOCDIS ---
Discharge Instructions DIAGNOSIS Discharge Diagnosis 1. Diabetic ketoacidosis 2. Diabetes CONDITION [id number] Patient Condition: [id number] Stable HOME CARE INSTRUCTIONS: [id number] Special Diet: [id number] CARBOHYDRATE CONTROLLED FOLLOW UP/APPOINTMENTS Follow-up Plan Follow up with your primary doctor in one week LOTUS CADET NP Jul 04, 2019 13:20
--- NOTE | 2019-07-04 13:23 | PN ---
Date/Time of Note Date/Time of Note DATE: 07/04/19 TIME: 13:22 Assessment/Plan VTE Prophylaxis Risk score (from Ns)>0 risk: 1 SCD applied (from Ns): No SCD contraindicated: low risk/ambulating Pharmacological prophylaxis: NA/contraindicated Pharm contraindication: low risk/ambulating Lines/Catheters IV C[facility]from [facility] Saline Lock Urinary Cath still in place: No Assessment/Plan Hospital Course Assessment and plan #DKA. Patient with reported type 2 diabetes. Continue ISS Adjust subcutaneous insulin regimen Monitor glucose trend. Disposition and plan: Monitor for improvement of glucose trend. Anticipate discharge within the next 24 hours if medically stable. Discussed POC with Dr. Del Rio Result Diagram: 07/04/19 0605 07/04/19 0610 Results 24hrs Laboratory Tests Test 07/03/19 17:13 07/03/19 20:28 07/04/19 06:05 07/04/19 06:10 Bedside Glucose 211 80 White Blood Count 5.0 Red Blood Count 4.40 L Hemoglobin 13.0 L Hematocrit 38.0 L Mean Corpuscular Volume 86.4 Mean Corpuscular 29.5 Hemoglobin Mean Corpuscular 34.2 Hemoglobin Concent Red Cell Distribution 12.6 Width Platelet Count 217 # Mean Platelet Volume 9.4 Immature Granulocytes % 0.600 H Neutrophils % 58.5 Lymphocytes % 28.4 Monocytes % 10.5 Eosinophils % 1.2 Basophils % 0.8 Nucleated Red Blood 0.0 Cells % Immature Granulocytes # 0.030 Neutrophils # 2.9 Lymphocytes # 1.4 Monocytes # 0.5 Eosinophils # 0.1 Basophils # 0.0 Nucleated Red Blood 0.0 Cells # Sodium Level 136 Potassium Level 4.2 Chloride Level 105 Carbon Dioxide Level 26 Anion Gap 5 Blood Urea Nitrogen 19 Creatinine 0.76 Est Glomerular Filtrat > 60 Rate mL/min Glucose Level 280 H Calcium Level 8.6 Test 07/04/19 08:00 07/04/19 09:11 07/04/19 12:10 Bedside Glucose 263 H 365 H 88 Subjective 24 Hr Interval Summary Free Text/Dictation Seen ambulating around unit. No signs of distress. 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, nl mental status, nl speech Skin: nl turgor Results Results 24hrs Laboratory Tests Test 07/03/19 17:13 07/03/19 20:28 07/04/19 06:05 07/04/19 06:10 Bedside Glucose 211 80 White Blood Count 5.0 Red Blood Count 4.40 L Hemoglobin 13.0 L Hematocrit 38.0 L Mean Corpuscular Volume 86.4 Mean Corpuscular 29.5 Hemoglobin Mean Corpuscular 34.2 Hemoglobin Concent Red Cell Distribution 12.6 Width Platelet Count 217 # Mean Platelet Volume 9.4 Immature Granulocytes % 0.600 H Neutrophils % 58.5 Lymphocytes % 28.4 Monocytes % 10.5 Eosinophils % 1.2 Basophils % 0.8 Nucleated Red Blood 0.0 Cells % Immature Granulocytes # 0.030 Neutrophils # 2.9 Lymphocytes # 1.4 Monocytes # 0.5 Eosinophils # 0.1 Basophils # 0.0 Nucleated Red Blood 0.0 Cells # Sodium Level 136 Potassium Level 4.2 Chloride Level 105 Carbon Dioxide Level 26 Anion Gap 5 Blood Urea Nitrogen 19 Creatinine 0.76 Est Glomerular Filtrat > 60 Rate mL/min Glucose Level 280 H Calcium Level 8.6 Test 07/04/19 08:00 07/04/19 09:11 07/04/19 12:10 Bedside Glucose 263 H 365 H 88 Medications Medication Current Medications Miscellaneous Information (* Miscellaneous Pharmacy Order) HYPOGLYCEMIA TREATMENT HYPOGLYCEM PROTOCOL PRN XX .HYPOGLYCEMIA PROTOCOL; Start 07/01/19 at 21:00 Dextrose (D50w Syringe) 50 ml Q15M PRN IV .DECREASED GLUCOSE; Start 07/01/19 at 21:00 Dextrose (D50w Syringe) 25 ml Q15M PRN IV .DECREASED GLUCOSE; Start 07/01/19 at 21:00 Ondansetron HCl (Zofran Inj) 4 mg Q6H PRN IV NAUSEA AND/OR VOMITING; Start 07/01/19 at 23:00 Albuterol/ Ipratropium (Duoneb) 3 ml Q2H RESP THERAPY PRN NEB SHORTNESS OF BREATH; Start 07/01/19 at 23:00 Acetaminophen (Tylenol Liquid) 650 mg Q6H PRN PO PAIN LEVEL 1-3 OR FEVER; Start 07/01/19 at 23:00 Diagnostic Test (Pha) (Accu-Chek) 1 ea 02 XX Last administered on 07/03/19at 02:13; Admin Dose 1 EA; Start 07/03/19 at 02:00 Insulin Aspart (Novolog Insulin Pen) NOVOLOG *MODERATE* ALGORITHM WITH MEALS BEDTIME SC Last administered on 07/04/19at 08:36; Admin Dose 8 UNIT; Start 07/02/19 at 07:35 Miscellaneous Information 1 ea NOTE XX ; Start 07/02/19 at 07:30 Glucose (Glutose) 15 gm Q15M PRN PO DECREASED GLUCOSE; Start 07/02/19 at 07:30 Glucose (Glutose) 22.5 gm Q15M PRN PO DECREASED GLUCOSE; Start 07/02/19 at 07:30 Dextrose (D50w Syringe) 25 ml Q15M PRN IV DECREASED GLUCOSE; Start 07/02/19 at 07:30 Dextrose (D50w Syringe) 50 ml Q15M PRN IV DECREASED GLUCOSE; Start 07/02/19 at 07:30 Glucagon (Glucagen) 1 mg Q15M PRN IM DECREASED GLUCOSE; Start 07/02/19 at 07:30 Glucose (Glutose) 15 gm Q15M PRN BUCCAL DECREASED GLUCOSE; Start 07/02/19 at 07:30 Insulin Glargine (Lantus) 20 units DAILY@0800 SC Last administered on 07/04/19at 09:11; Admin Dose 20 UNITS; Start 07/04/19 at 08:00 Metformin HCl (Glucophage) 500 mg BID WITH MEALS PO Last administered on 07/04/19at 08:33; Admin Dose 500 MG; Start 07/03/19 at 18:05 Diagnostic Test (Pha) (Accu-Chek) 1 ea AC MEALS AND BEDTIME XX Last administered on 07/03/19at 20:33; Admin Dose 1 EA; Start 07/03/19 at 11:30 Famotidine (Pepcid Iv) 20 mg 0600 IV Last administered on 07/04/19at 06:07; Admin Dose 20 MG; Start 07/04/19 at 06:00 Insulin Aspart (Novolog Insulin Pen) 10 unit WITH MEALS SC Last administered on 07/04/19at 12:13; Admin Dose 10 UNIT; Start 07/04/19 at 11:30 LOTUS CADET NP Jul 04, 2019 13:23
[2019-07-04 14:00] VITALS: BP 124/82; PULSE 81; RESP 16
[2019-07-04 20:16] VITALS: BP 125/77; PULSE 73; RESP 18
[2019-07-05] MEDS: ACCU-CHEK XX SCH ×2 (01:03→07:30)
[2019-07-05 02:10] VITALS: BP 123/74; PULSE 74; RESP 18
[2019-07-05] MEDS: FAMOTIDINE 20 MG INJ IV SCH (06:03)
[2019-07-05] MEDS: metFORMIN 500 MG TAB PO SCH (07:52)
[2019-07-05] MEDS: INSULIN ASPART [NOVOLOG] 3 ML PEN SC SCH ×2 (07:53)
[2019-07-05] MEDS: INSULIN GLARGINE [LANTus] (100 UNITS/ML) SYG SC SCH (07:54)
[2019-07-05 08:00] VITALS: BP 128/83; PULSE 88; RESP 17
--- NOTE | 2019-07-05 10:57 | DS ---
Date/Time of Note Date/Time of Note DATE: 07/05/19 TIME: 10:55 Discharge Summary Admission/Discharge Info Admit Date/Time Jul 01, 2019 at 22:27 Discharge Date/Time Jul 05, 2019 at 10:05 Discharge Diagnosis 1. Diabetic ketoacidosis 2. Diabetes Patient Condition: Stable Hospital Course This is a 43-year-old male with history of type 2 diabetes, came to hospital due to reports of nausea and vomiting and was found to have DKA. Patient was placed in the ICU and on DKA protocol. He did improve with IV fluids. We did transition from insulin drip to subcutaneous insulin regimen. During his course of stay he did improve. We did advise him for outpatient follow-up with his primary physician and to take his medications as prescribed. The plan of care was discussed with the patient and he verbalized understanding. On the day of discharge patient was in stable condition Discussed POC with Dr. Del Rio [facility] Active Scripts Insulin Glargine,Hum.rec.anlog (Basaglar Kwikpen U-100) 100 Unit/1 Ml Insuln.pen, 20 UNIT SC QHS, #1 EA 1 Refill Prov:LOTUS CADET NP 07/04/19 Insulin Lispro (Humalog Kwikpen U-100) 100 Unit/1 Ml Insuln.pen, 6 UNIT SQ AC MEALS, #1 EA 1 Refill Prov:LOTUS CADET SHEEPSKIN PICKLER 07/04/19 Metformin* (Glucophage*) 500 Mg Tab, 500 MG PO BID WITH MEALS, #60 TAB Prov:LOTUS CADET NP 07/04/19 Discontinued Reported Medications Metformin* (Glucophage*) 1,000 Mg Tablet, 1000 MG PO WITH BREAKFAST DINNE, #30 TAB 07/01/19 Insulin Glargine,Hum.rec.anlog (Basaglar Kwikpen U-100) 100 Unit/1 Ml Insuln.pe n, 35 UNIT SC QHS, EA 07/01/19 Discontinued Scripts Ibuprofen* (Motrin*) 600 Mg Tab, 600 MG PO Q6, #30 TAB Prov:ARGENIS CLAUDIO MD 07/12/15 Diazepam* (Valium*) 5 Mg Tablet, 5 MG PO QHS PRN for MUSCLE SPASMS, #5 TAB Prov:ARGENIS CLAUDIO MD 07/12/15 Hydrocodone Bit-Acetaminophen* (Thomas*) 10-325 Mg Tablet, 1 TAB PO Q6 PRN for PAIN, #12 TAB Prov:ARGENIS CLAUDIO MD 07/12/15 Follow-up Plan Follow up with your primary doctor in one week Primary Care Provider Not On Staff Doctor Time spent on discharge: > 30 minutes Pending Labs Laboratory Tests Test 07/04/19 12:10 07/04/19 17:06 07/04/19 20:30 07/05/19 02:09 Bedside 88 101 184 170 Glucose mg/dL (70-220) mg/dL (70-220) mg/dL (70-220) mg/dL (70-220) Test 07/05/19 04:55 07/05/19 07:50 White Blood 4.5 Count 10^3/ul (4.8-10 .8) Red Blood 4.13 Count 10^6/ul (4.70-6 .10) Hemoglobin 12.3 g/dl (14.0-18.0 ) Hematocrit 35.3 % (42.0-52.0) Mean 85.5 Corpuscular fl (82.0-101.0) Volume Mean 29.8 Corpuscular pg (29.0-33.0) Hemoglobin Mean 34.8 Corpuscular g/dl (32.0-37.0 Hemoglobin Conc ) ent Red Cell 12.5 Distribution % (11.5-14.5) Width Platelet Count 210 10^3/UL (140-41 5) Mean Platelet 9.6 Volume fl (7.4-10.4) Immature 0.400 Granulocytes % % (0.001-0.429) Neutrophils % 47.5 % (39.0-77.0) Lymphocytes % 37.9 % (15.0-51.0) Monocytes % 12.2 % (0.0-11.0) Eosinophils % 1.1 % (0.0-7.0) Basophils % 0.9 % (0.0-2.0) Nucleated Red 0.0 Blood Cells % /100WBC (0.0-0. 0) Immature 0.020 Granulocytes # 10^3/ul (0.0-0. 031) Neutrophils # 2.1 10^3/ul (1.6-7. 5) Lymphocytes # 1.7 10^3/ul (0.8-2. 9) Monocytes # 0.6 10^3/ul (0.3-0. 9) Eosinophils # 0.1 10^3/ul (0.0-0. 5) Basophils # 0.0 10^3/ul (0.0-0. 1) Nucleated Red 0.0 Blood Cells # 10^3/ul (0.0-0. 0) Sodium Level 136 mmol/L (135-144 ) Potassium 3.6 Level mmol/L (3.5-5.1 ) Chloride Level 103 mmol/L (97-110) Carbon Dioxide 27 Level mmol/L (21-31) Anion Gap 6 (5-13) Blood Urea 17 mg/dl (7-20) Nitrogen Creatinine 0.72 mg/dl (0.61-1.2 4) Est Glomerular > 60 Filtrat mL/min (>60) Rate mL/min Glucose Level 151 mg/dl (70-220) Calcium Level 8.9 mg/dl (8.4-10.2 ) Bedside 155 Glucose mg/dL (70-220) LOTUS CADET NP Jul 05, 2019 10:57
== END 2019-07-05 10:05 | disposition home or self-care (01) | DRG 638 ==
LOC: E/R 19:25 → ICU 22:27 → PP2 07-02 18:40
PROVIDERS: ADMIT Internal Medicine; ATTEND Internal Medicine
DX: E11.10 Type 2 diabetes mellitus with ketoacidosis without coma (principal); R63.6 Underweight; Z68.1 Body mass index [BMI] 19.9 or less, adult; Z79.4 Long term (current) use of insulin
CPT/HCPCS: 36415; 80048; 81003; 82803; 82962; 83036; 83735; 84100; 85025; 87081; C9113; J1815; J3480; J7030; J7120

== ENCOUNTER 2019-08-18 14:37 | Emergency (ER) | payer MEDICAID, OTHER ==
[~2019-08-18] VITALS: Wt 63.6 kg
[~2019-08-18 14:37] MED LIST changes: -DIAZ5TAB PO; -HYDR-762 PO; -IBUP-1542 PO; +LOPE2CAP PO; -MTF1000T PO; +ONDA4TAB14 PO; +PANT40TA3 PO
[2019-08-18] MEDS ORDERED: PANTOPRAZOLE 40 MG INJ IV ONE (16:00)
[2019-08-18] MEDS ORDERED: ONDANSETRON (ODT) 4 MG TAB ODT STA (17:29)
[2019-08-18] MEDS ORDERED: LOPERAMIDE 2 MG CAP PO ONE (17:30)
[2019-08-18 17:44] VITALS: BP 119/96; PULSE 88; RESP 20
== END 2019-08-18 17:52 | disposition home or self-care (01) ==
LOC: E/R 14:37
DX: R10.13 Epigastric pain (principal); R11.2 Nausea with vomiting, unspecified; E11.9 Type 2 diabetes mellitus without complications; Z79.84 Long term (current) use of oral hypoglycemic drugs
CPT/HCPCS: 76705; 80053; 81001; 82962; 83690; 85025; 96374; C9113; Z7502; Z7610